=== PATIENT | female | born 1965 | race Caucasian/White ===

== ENCOUNTER 2018-04-24 12:52 | Emergency (ER) | payer OTHER ==
[2018-04-24] MEDS ORDERED: morphine CARPU-JECT 4 MG/1 ML DISP.SYRIN IVPUSH ONE ×2 (13:15→15:14)
[2018-04-24] MEDS ORDERED: morphine SULFATE 4 MG/ML VIAL ONE ×2 (13:39→15:28)
[2018-04-24 13:45] VITALS: BP 160/50; PULSE 60; TEMP 98; BMI 31.2
[2018-04-24 14:05] LABS: BASO % 0.2 % (0-2.0); HEMATOCRIT 44.2 % (32.4-45.2); HEMOGLOBIN 14.6 GM/dL (10.7-15.3); LYMPH % 16.9 % (8-40); MCH 27.9 pg (25.7-33.7); MCHC 33.1 g/dl (32.0-36.0); MEAN CELL VOLUME 84.3 fl (80-96); MONO % 4.3 % (3.8-10.2); NEUT % 78.6 % (42.8-82.8); PLATELET COUNT 310 K/MM3 (134-434); RBC 5.24 M/mm3 (3.60-5.2); RDW 14.6 % (11.6-15.6); WHITE BLOOD COUNT 12.7 K/mm3 (4.0-10.0)
--- NOTE | 2018-04-24 14:11 | PDOC ---
History of Present Illness - General History Source: Patient Exam Limitations: No Limitations - History of Present Illness Initial Comments: 04/24/18 14:08 The patient is a 52F with a PMH of HTN, DM who presents to the ER after slipping on ice and falling on an outstretched hand. This happened 20 mins [employer]. She was BIBA and is complaining of L wrist pain w/o numbness, tingling, or weakness. She did not hit her head. She states that she fell on her buttocks and has no complaints of pain there. She denies LOC. <Romero Naidu - Last Filed: 04/24/18 16:33> <Cristal Ha - Last Filed: 04/24/18 16:56> - General Chief Complaint: Injury Stated Complaint: FALL Time Seen by Provider: 04/24/18 13:09 Past History - Past Medical History Anemia: Yes Asthma: No Cancer: No Cardiac Disorders: No CVA: No COPD: No CHF: No Dementia: No Diabetes: No GI Disorders: Yes (GERD, CONSTIPATION,COLON POLYP) Disorders: No HTN: Yes Hypercholesterolemia: No Liver Disease: No Seizures: No Thyroid Disease: Yes (THYROID NEOPLASM MALIGNANT) - Surgical History Abdominal Surgery: Yes (LAPAROSCOPIC GASTRIC BYPASS) Appendectomy: No Cardiac Surgery: No Cholecystectomy: No Lung Surgery: No Neurologic Surgery: No Orthopedic Surgery: No - Suicide/Smoking/Psychosocial Hx Smoking Status: No Smoking History: Never smoked Have you smoked in the past 12 months: No Number of Cigarettes Smoked Daily: 0 Information on smoking cessation initiated: No Hx Alcohol Use: No Drug/Substance Use Hx: No Substance Use Type: None <Romero Naidu - Last Filed: 04/24/18 16:33> <Cristal Ha - Last Filed: 04/24/18 16:56> - Past Medical History Allergies/Adverse Reactions: Allergies Allergy/AdvReac Type Severity Reaction Status Date / Time No Known Allergies Allergy Verified 11/12/11 08:38 Home Medications: Ambulatory Orders Ferrous Sulfate [Feosol] 325 mg PO BID 11/12/11 Levothyroxine [Synthroid] 88 mcg PO DAILY 11/12/11 Losartan Potassium 50 mg PO HS 11/12/11 Montelukast Na [Singulair] 10 mg PO HS 11/12/11 Albuterol 0.083% Nebulizer Raina [Ventolin 0.083%] 1 neb NEB PRN PRN 12/02/12 Loratadine [Claritin] 10 mg PO HS 12/02/12 Omeprazole [Prilosec (RX)] 1 tab PO DAILY 12/22/12 Oxycodone HCl/Acetaminophen [Percocet 10-325 mg Tablet] 1 each PO QID PRN 3 Days #12 tablet MDD 4 04/24/18 Review of Systems - Review of Systems Able to Perform ROS?: Yes Is the patient limited Urdu proficient: No Constitutional: No: Chills, Fever HEENTM: No: Blurred Vision ABD/GI: No: Nausea, Vomiting Musculoskeletal: Yes: Other (L wrist pain) Neurological: No: Headache, Numbness, Tingling, Weakness <Romero Naidu - Last Filed: 04/24/18 16:33> *Physical Exam - Vital Signs Last Vital Signs Temp Pulse Resp BP Pulse Ox 98 F 60 16 160/50 L 100 04/24/18 12:53 04/24/18 12:53 04/24/18 12:53 04/24/18 12:53 04/24/18 12:53 - Physical Exam General Appearance: Yes: Nourished, Appropriately Dressed. No: Apparent Distress HEENT: positive: Normal Voice, Hearing Grossly Normal Extremity: positive: Other (TTP over L wrist, extremely limited ROM. No TTP over L elbow and shoulder. Nuerovascularly intact in L arm, including hand.) Integumentary: positive: Normal Color, Dry, Warm <Romero Naidu - Last Filed: 04/24/18 16:33> - Vital Signs Last Vital Signs Temp Pulse Resp BP Pulse Ox 98 F 60 16 160/50 L 100 04/24/18 12:53 04/24/18 12:53 04/24/18 12:53 04/24/18 12:53 04/24/18 12:53 <Cristal Ha - Last Filed: 04/24/18 16:56> Moderate Sedation - Procedure Monitoring Vital Signs: Procedure Monitoring Vital Signs Temperature 98 F 04/24/18 12:53 Pulse Rate 60 04/24/18 12:53 Respiratory Rate 16 04/24/18 12:53 Blood Pressure 160/50 L 04/24/18 12:53 O2 Sat by Pulse Oximetry (%) 100 04/24/18 12:53 <Romero Naidu - Last Filed: 04/24/18 16:33> - Procedure Monitoring Vital Signs: Procedure Monitoring Vital Signs Temperature 98 F 04/24/18 12:53 Pulse Rate 60 04/24/18 12:53 Respiratory Rate 16 04/24/18 12:53 Blood Pressure 160/50 L 04/24/18 12:53 O2 Sat by Pulse Oximetry (%) 100 04/24/18 12:53 <Cristal Ha - Last Filed: 04/24/18 16:56> Procedures - Splinting Splint Location: Left: Wrist, Forearm Pre-Proc Neuro Vasc Exam: normal Hand-Made Type: orthoglass Splint Type: Yes: Sugar Tong Post-Proc Neuro Vasc Exam: normal Melquiades Bandage: yes Sling: Yes Complications: No Post splint xray: No <Cristal Ha - Last Filed: 04/24/18 16:56> ED Treatment Course - LABORATORY CBC & Chemistry Diagram: 04/24/18 13:45 04/24/18 13:45 - ADDITIONAL ORDERS Additional order review: 04/24/18 13:45 RBC 5.24 H MCV 84.3 MCHC 33.1 RDW 14.6 MPV 9.0 Neutrophils % 78.6 Lymphocytes % 16.9 Monocytes % 4.3 Eosinophils % 0.0 Basophils % 0.2 - RADIOLOGY Radiology Studies Ordered: Category Date Time Status FOREARM- LEFT [RAD] Stat Radiology 04/24/18 13:14 Ordered HAND- LEFT [RAD] Stat Radiology 04/24/18 13:14 Ordered WRIST-LEFT [RAD] Stat Radiology 04/24/18 13:14 Ordered - Medications Given in the ED: ED Medications Discontinued Medications Generic Name Dose Route Start Last Admin Trade Name Freq PRN Reason Stop Dose Admin Morphine Sulfate 4 mg 04/24/18 13:15 04/24/18 13:40 Morphine Injection - IVPUSH 04/24/18 13:16 4 mg ONCE ONE Administration <Romero Naidu - Last Filed: 04/24/18 16:33> - LABORATORY CBC & Chemistry Diagram: 04/24/18 13:45 04/24/18 13:45 - ADDITIONAL ORDERS Additional order review: Laboratory Results 04/24/18 04/24/18 04/24/18 13:45 13:45 13:45 PT with INR INR Sodium 135 L Potassium 4.2 Chloride 100 Carbon Dioxide 29 Anion Gap 6 L BUN 17 Creatinine 0.7 Creat Clearance w eGFR > 60 Random Glucose 111 H Calcium 8.9 Total Bilirubin 0.3 AST 17 ALT 31 Alkaline Phosphatase 141 H Total Protein 8.4 H Albumin 4.3 Serum , Qual Negative Blood Type Cancelled Antibody Screen Cancelled 04/24/18 13:45 PT with INR 10.90 INR 0.92 Sodium Potassium Chloride Carbon Dioxide Anion Gap BUN Creatinine Creat Clearance w eGFR Random Glucose Calcium Total Bilirubin AST ALT Alkaline Phosphatase Total Protein Albumin Serum , Qual Blood Type Antibody Screen 04/24/18 13:45 RBC 5.24 H MCV 84.3 MCHC 33.1 RDW 14.6 MPV 9.0 Neutrophils % 78.6 Lymphocytes % 16.9 Monocytes % 4.3 Eosinophils % 0.0 Basophils % 0.2 - Medications Given in the ED: ED Medications Discontinued Medications Generic Name Dose Route Start Last Admin Trade Name [place] PRN Reason Stop Dose Admin Morphine Sulfate 4 mg 04/24/18 13:15 04/24/18 13:40 Morphine Injection - IVPUSH 04/24/18 13:16 4 mg ONCE ONE Administration Morphine Sulfate 4 mg 04/24/18 15:14 04/24/18 15:30 Morphine Injection - IVPUSH 04/24/18 15:15 4 mg ONCE ONE Administration Oxycodone/Acetaminophen 2 combo 04/24/18 16:29 04/24/18 16:44 Percocet 5/325 - PO 04/24/18 16:30 2 combo ONCE ONE Administration <Cristal Ha - Last Filed: 04/24/18 16:56> Medical Decision Making - Medical Decision Making 04/24/18 14:10 The patient is a 52F with a PMH of HTN, DM who presents to the ER after falling on an outstretched hand. PE concerning for Colles fracture. Treating pain with morphine. Pending XR. 04/24/18 14:47 Pain controlled. XR shows possible dislocated fracture of the L radius with distal ulnar fracture. Pending official XR read. 04/24/18 15:57 Case d/w DARYA May who advises to place in sugar tong splint. He does not believe that the fracture requires a reduction. He recommends f/u tomorrow from 10-1pm. Will place splint. 04/24/18 16:30 Splint placed. Will give pain control and d/c home with ortho f/u. <Romero Naidu - Last Filed: 04/24/18 16:33> *DC/Admit/Observation/Transfer - Discharge Dispostion Decision to Admit order: No <Romero Naidu - Last Filed: 04/24/18 16:33> <Cristal Ha - Last Filed: 04/24/18 16:56> Diagnosis at time of Disposition: Radial fracture Qualifiers: Encounter type: initial encounter Radius location: distal Fracture type: closed Fracture morphology: other fracture Laterality: left Qualified Code(s): S52.592A - Other fractures of lower end of left radius, initial encounter for closed fracture - Discharge Dispostion Disposition: HOME Condition at time of disposition: Stable - Prescriptions Prescriptions: Oxycodone HCl/Acetaminophen [Percocet 10-325 mg Tablet] 1 each PO QID PRN 3 Days #12 tablet MDD 4 PRN Reason: Pain Level 7 - 10 - Referrals Referrals: Nicho Thompson MD [Staff Physician] - - Patient Instructions Printed Discharge Instructions: Wrist Fracture, How to Prevent Falls Additional Instructions: Please follow up with the orthopedic surgeon _ Dr Francois/Jay - tomorrow morning from 10am-1pm. They are located at [address] [place] [address]. Please rest, ice and elevate the affected extremity. Please take Motrin 600mg every 8 hours, as needed, for pain (take with food). Follow up with Orthopedic Surgery in 1-2 days for further evaluation - please call for any appointment. Keep splint/cast clean, dry and on. Please use garbage bag while showering to keep splint/cast dry. Use sling. Please return to ED immediately for increased pain, tingling/numbness, swelling, redness, and fever Please take one tablet of Tylenol - OXYCODONE (Percocet) every 6 hours, as needed for SEVERE pain. Please do not take this medication unless you absolutely need it, it is very addictive. Please do not drive, operate heavy machinery or make important decisions while on this medication, it can cloud your judgement. Please return to the ER if you experience swelling that causes extreme pain in your fingers or numbness in your fingers. - Post Discharge Activity Forms/Work/School Notes: Back to Work
--- NOTE | 2018-04-24 14:16 | PDOC ---
Attending Attestation - Medical Decision Making Documentation prepared by ANNE Flores, acting as medical staff credentialing coordinator for Cristal Ha MD. 04/24/18 14:23 <Shantelle Farnsworth - Last Filed: 04/24/18 14:23> - Resident Resident Name: Romero Naidu - ED Attending Attestation I have performed the following: I have examined & evaluated the patient, The case was reviewed & discussed with the resident, I agree w/resident's findings & plan - HPI HPI: 04/24/18 14:13 HPI 52 Y F, PMH of HTN, hypothyroid, and asthma, presents to the ED s/p fall. Patient admits to [facility] after slipping on ice earlier today, endorsing left arm and wrist pain and swelling. no numbness/tingling or weakness. No prodromal sx. No head strike or LOC/head injury. Allergies: NKA Past Medical History: HTN, hypothyroid, and asthma Social history: Lives with family. No smoking. No alcohol. No illicit drugs. - Physicial Exam PE: 04/24/18 14:14 General: NAD, well appearing Vascular: 2+ DP pulses symmetric and equal. Back: no midline tenderness, no stepoffs, FROM Focused MSK/Neuro Exam notable for soft compartments, Cap refill <2 sec. Proximal and distal strength 5/5, biomedical engineering technician strength 5/5 against resistance - equal and symmetric. Upper Extremity: shoulder abduction/adduction/flexion/extension and prox strength 5/5 actively against resistance. 5/5 shoulder shrug strength. deltoid sensation intact; sensation grossly intact in median/radial/ulnar distribution. distal biomedical engineering technician strength 5/5. 2+ radialis pulses bilaterally and symmetric. +left distal forearm/wrist with +swelling, palp tenderness and deformity. Skin: color normal color, warm and well perfused. - Medical Decision Making 04/24/18 14:15 hpi as documented VS reviewed wnl DDx. Colles fx, scaphoid fx, sprain, contusion. ED course: given analgesia, splint removed for eval, NVI, +distal forearm/wrist tenderness and swelling, clinically suspecting Colles fx vs distal radius fx.. Xray LUE with distal radius fx, displaced. sugar tong placed by resident, see proc note. NVI after sugar tong placement. Rx analgesia, opioids prn for severe pain in sling for comfort ortho f/u Dr Francois/Jay arguelles NVI, return precautions for compartment syndrome, neurovascular changes, pain or swelling. Will discharge patient with a short course of opiates. Went over the risks of the medication. Advised patient to not mix with other products containing acetaminophen, to not combine with alcohol, or other illicit drugs, to not drive or operate machinery, and to refrain from any activity that will require complete attention while taking this medication. Pt to be discharged in stable condition. Patient and family made aware of impression and plan, return precautions discussed (including but not limited to worsening pain or symptoms), fevers, or signs of infection, chest pain, respiratory distress, inability to tolerate oral intake, dehydration, syncope, or neurologic changes). Follow up with PMD and/or specialist as recommended, follow up information provided, take medications as instructed for duration of time. continue with supportive care, avoid triggers and precipitants. All questions answered to patient's satisfaction and expressed understanding and comfort with this. Patient does not suffer from an acute life-threatening medical condition at this time she is safe for outpatient follow-up. 04/24/18 16:46 04/24/18 16:54 04/24/18 16:55 04/24/18 16:55 <Cristal Ha - Last Filed: 04/24/18 16:55> *DC/Admit/Observation/Transfer <FarnsworthShantelle yuan - Last Filed: 04/24/18 14:23> <Cristal Ha - Last Filed: 04/24/18 16:55> Diagnosis at time of Disposition: Radial fracture Qualifiers: Encounter type: initial encounter Radius location: distal Fracture type: closed Fracture morphology: other fracture Laterality: left Qualified Code(s): S52.592A - Other fractures of lower end of left radius, initial encounter for closed fracture - Discharge Dispostion Disposition: HOME Condition at time of disposition: Stable - Prescriptions Prescriptions: Oxycodone HCl/Acetaminophen [Percocet 10-325 mg Tablet] 1 each PO QID PRN 3 Days #12 tablet MDD 4 PRN Reason: Pain Level 7 - 10 - Referrals Referrals: Nicho Thompson MD [Staff Physician] - - Patient Instructions Printed Discharge Instructions: Wrist Fracture, How to Prevent Falls Additional Instructions: Please follow up with the orthopedic surgeon _ Dr Francois/Jay - tomorrow morning from 10am-1pm. They are located at [address] [place] [address]. Please rest, ice and elevate the affected extremity. Please take Motrin 600mg every 8 hours, as needed, for pain (take with food). Follow up with Orthopedic Surgery in 1-2 days for further evaluation - please call for any appointment. Keep splint/cast clean, dry and on. Please use garbage bag while showering to keep splint/cast dry. Use sling. Please return to ED immediately for increased pain, tingling/numbness, swelling, redness, and fever Please take one tablet of Tylenol - OXYCODONE (Percocet) every 6 hours, as needed for SEVERE pain. Please do not take this medication unless you absolutely need it, it is very addictive. Please do not drive, operate heavy machinery or make important decisions while on this medication, it can cloud your judgement. Please return to the ER if you experience swelling that causes extreme pain in your fingers or numbness in your fingers. - Post Discharge Activity Forms/Work/School Notes: Back to Work
[2018-04-24 14:18] LABS: INR 0.92 (0.83-1.09); PROTHROMBIN TIME (PATIENT) 10.9 SEC (9.7-13.0)
[2018-04-24 14:45] LABS: ALBUMIN 4.3 g/dl (3.4-5.0); ALK PHOS 141 U/L (45-117); ANION GAP 6 MMOL/L (8-16); BILIRUBIN,TOTAL 0.3 mg/dL (0.2-1); BLOOD UREA NITROGEN 17 mg/dL (7-18); CALCIUM 8.9 mg/dL (8.5-10.1); CHLORIDE 100 mmol/L (98-107); CO2 29 mmol/L (21-32); CREATININE 0.7 mg/dL (0.55-1.3); GLUCOSE,RANDOM 111 mg/dL (74-106); POTASSIUM 4.2 mmol/L (3.5-5.1); SGOT/AST 17 U/L (15-37); SGPT/ALT 31 U/L (13-61); SODIUM 135 mmol/L (136-145); TOT PROT 8.4 g/dl (6.4-8.2)
== END 2018-04-24 18:18 | disposition home or self-care (01) ==
LOC: JER 12:52
PROC: 2W3DX1Z Immobilization of Left Lower Arm using Splint (ICD-10-PCS; principal; 2018-04-24)
DX: S52.592A Other fractures of lower end of left radius, initial encounter for closed fracture (principal); S52.615A Nondisplaced fracture of left ulna styloid process, initial encounter for closed fracture; W00.0XXA Fall on same level due to ice and snow, initial encounter; Y93.89 Activity, other specified; Y92.89 Other specified places as the place of occurrence of the external cause; Y99.8 Other external cause status
CPT/HCPCS: 36415; 73090-TC-LT-FY; 73110-TC-LT-FY; 73130-TC-LT-FY; 80053; 84703; 85025; 85610; 99283-25